=== PATIENT | male | born 1945 | race African-American/Black ===

== ENCOUNTER → 2016-10-21 | Outpatient (CLI) | payer MEDICARE, OTHER ==
[2015-12-30 14:19] VITALS: BP 169/91
[~2016-10-21] MED LIST: AMLO10TA4 PO; ATEN25TA PO; ATOR40TA PO; Aspirin PO; CLOP75TA27 PO; GLIP10TA PO
[2016-10-21 12:26] LABS: BASO % 1 % (0-3); EOS % 4 % (0-3); HEMATOCRIT 40.1 % (39.0-53.0); HEMOGLOBIN 12.6 g/dL (13.0-17.5); LYMPH # 3.6 x10^3/uL (1.0-4.8); LYMPH % 44 % (24-48); MEAN CORPUSCULAR HEMOGLOBIN 28 pg (25-35); MEAN CORPUSCULAR HGB CONC 31 g/dL (31-37); MEAN CORPUSCULAR VOLUME 89 fL (79-100); MONO % 9 % (0-9); NEUT % 42 % (31-73); PLATELET COUNT 148 x10^3/uL (140-400); RED BLOOD COUNT 4.51 x10^6/uL (4.30-5.70); RED CELL DISTRIBUTION WIDTH 14.7 % (11.5-14.5)
[2016-10-21 13:14] LABS: ALBUMIN 3.6 g/dL (3.4-5.0); CALCIUM 8.8 mg/dL (8.5-10.1); CREATININE 3.3 mg/dL (0.7-1.3); GFR 22.3; PHOSPHORUS 4.6 mg/dL (2.6-4.7)
[2016-10-21 13:19] LABS: POTASSIUM 5.9 mmol/L (3.5-5.1)
[2016-10-21 18:12] LABS: PROTEIN 24 HR UR 3651.1 mg/24 hr (30.0-150.0)
[2016-10-21 21:15] LABS: PTH INTACT 74 pg/mL (15-65)
[2016-10-22 08:27] LABS: TOTAL SERUM CREATININE 3.36 mg/dL (0.76-1.27); TOTAL URINE CREATININE 71.6 mg/dL (Not Estab.)
== END | disposition home or self-care (01) ==
LOC: LAB 11:41
PROVIDERS: ATTEND Internal Medicine Nephrology
DX: I12.9 Hypertensive chronic kidney disease with stage 1 through stage 4 chronic kidney disease, or unspecified chronic kidney disease (principal); N18.3 Chronic kidney disease, stage 3 (moderate); E11.22 Type 2 diabetes mellitus with diabetic chronic kidney disease; R80.9 Proteinuria, unspecified; E87.5 Hyperkalemia
CPT/HCPCS: 36415; 80069; 82575; 83970; 84156; 85027

== ENCOUNTER → 2016-10-26 | Outpatient (CLI) | payer MEDICARE, OTHER ==
[2015-12-30 14:19] VITALS: BP 169/91
[2016-10-26 11:41] LABS: ALBUMIN 3.5 g/dL (3.4-5.0); CALCIUM 8.6 mg/dL (8.5-10.1); CREATININE 3.5 mg/dL (0.7-1.3); GFR 20.9; PHOSPHORUS 4.2 mg/dL (2.6-4.7); POTASSIUM 5.6 mmol/L (3.5-5.1)
== END | disposition home or self-care (01) ==
LOC: LAB 11:01
PROVIDERS: ATTEND Internal Medicine Nephrology
DX: I12.9 Hypertensive chronic kidney disease with stage 1 through stage 4 chronic kidney disease, or unspecified chronic kidney disease (principal); N18.3 Chronic kidney disease, stage 3 (moderate); E11.22 Type 2 diabetes mellitus with diabetic chronic kidney disease; R80.9 Proteinuria, unspecified; E87.5 Hyperkalemia
CPT/HCPCS: 36415; 80069

== ENCOUNTER → 2017-04-07 | Outpatient (CLI) | payer MEDICARE, OTHER ==
[2015-12-30 14:19] VITALS: BP 169/91
[~2017-04-07] MED LIST changes: -CLOP75TA27 PO; +CLOP75TA57 PO
--- NOTE | 2017-04-08 15:15 | SLEEP ---
DATE OF STUDY: 04/07/2017 ATTENDING PHYSICIAN: Dr. Bryon Quiñonez The patient is a 72-year-old who weighs 276 pounds with a BMI of 40. The patient's Seneca score was 14. Sleep study was performed at [facility]. This was a split night study. During the night of study, the patient spent 413 minutes in bed and slept for 340 minutes with a sleep efficiency of 82%. Sleep latency was 17 minutes with a REM latency of 119 minutes. Overall sleep architecture showed increased stage 1 sleep, normal stage 2 sleep, normal slow wave and reduced REM sleep. During the initial diagnostic portion of the study, the patient slept for 122 minutes. During this time, there were 3 obstructive apneas, no mixed or central apneas. There were 123 hypopneas. The patient's apnea-hypopnea index was 62 per hour, supine index 62 per hour and REM index of 60 per hour. Review of nocturnal oximetry study revealed a mean oxygen saturation of 97% with the lowest of 65%. A 17% of the time oxygen saturation remained between 80% and 89%. EKG monitoring revealed normal sinus rhythm, average heart rate was 82 beats per minute, no arrhythmias were observed. Periodic limb movements in sleep were seen at an index of 19 per hour and none caused EEG arousals. The patient met the criteria for CPAP initiation. It was started at 5 cm water and titrated up to 15 cm of water. At the final pressure, the patient slept for 47 minutes. The patient had supine sleep throughout, but no REM sleep was observed. Apnea-hypopnea index was reduced to 0 per hour and oxygen saturation remained above 92%. The patient used a medium sized full face mask. IMPRESSION: 1. Severe sleep apnea-hypopnea syndrome at an apnea-hypopnea index of 62 per hour. 2. Nocturnal hypoxia secondary to obstructive sleep apnea, but resolved with CPAP. 3. Mild to moderate periodic limb movements in sleep without any significant EEG arousals. This does not need to be treated. RECOMMENDATIONS: 1. CPAP at 15 cm water completely eliminated the patient's sleep apnea and should be used on a nightly basis. 2. Follow up in 4-6 weeks to assess compliance with CPAP and to document clinical improvement. 3. Weight loss is strongly advised. 4. Avoid central nervous system depressants. 5. Cautioned regarding driving until symptoms of sleep apnea resolve with the use of CPAP. 6. The patient to use a medium sized full face mask. YONI MICHELLE MD DR: KIRSTY/jacobo JOB#: [id number] / [id number] Bryon Doyle
== END | disposition home or self-care (01) ==
LOC: SLPLAB 18:52
PROVIDERS: ATTEND Family Medicine
DX: G47.33 Obstructive sleep apnea (adult) (pediatric) (principal)
CPT/HCPCS: 95810

== ENCOUNTER → 2019-03-06 | Outpatient (CLI) | payer MEDICARE ==
[2018-08-04 14:31] VITALS: BP 132/65
[~2019-03-06] MED LIST changes: +CARV3.1210 PO; +CLON0.2T10 PO; +Calcium Acetate PO; +ERGO500027 PO; +FERR325T14 PO; +HYDR-2868 PO; +ISOS30TA4 PO; +TAMS0.4C97 PO
--- NOTE | 2019-03-06 15:35 | RAD ---
EXAM: Chest, 2 views. HISTORY: Chronic renal disease. COMPARISON: 08/01/2018. FINDINGS: 2 views of the chest are obtained. There is no infiltrate, pleural effusion or pneumothorax. The heart is normal in size. There are calcified renal pelvis. There is eventration of the right hemidiaphragm. IMPRESSION: No acute pulmonary finding. Electronically signed by: Phyllis Morrissey MD (03/06/2019 3:32 PM) [facility]
== END | disposition home or self-care (01) ==
LOC: RAD 13:41
PROVIDERS: ATTEND Nurse Practitioner Adult Health
DX: E11.22 Type 2 diabetes mellitus with diabetic chronic kidney disease (principal); I13.2 Hypertensive heart and chronic kidney disease with heart failure and with stage 5 chronic kidney disease, or end stage renal disease; N18.5 Chronic kidney disease, stage 5; I50.32 Chronic diastolic (congestive) heart failure
CPT/HCPCS: 71046

== ENCOUNTER 2019-03-09 09:18 | Day surgery (SDC) | payer MEDICARE ==
[~2019-03-09] VITALS: Ht 172.7 cm; Wt 122.5 kg
[~2019-03-09 09:18] MED LIST changes: +BUPIVACAINE MPF 0.5% 30 ML VIAL. ONE; +HEPARIN SODIUM 5,000 UNIT in IV NORMAL SALINE 500ML BAG 500 ML IRR ONE; +HYDROmorphone 2 MG/ML VIAL IV PRN; +IV RINGERS,LACTATED 1000ML 1,000 ML IV SCH; +LIDOCAINE 1% PF 2 ML VIAL. ID PRN; +MORPHINE SULFATE 2 MG/ML VIAL. IV PRN; +ONDANSETRON PF 4 MG/2 ML VIAL. IV PRN; +PROCHLORPERAZINE 10 MG/2 ML VIAL. IV PRN; +ceFAZolin SODIUM 3 GM in IV DEXTROSE 5% 100ML 100 ML IV PRN; +fentaNYL PF VIAL 100 MCG/2 ML VIAL IV PRN
[2019-03-09] MEDS ORDERED: IV NORMAL SALINE 1000ML BAG 1,000 ML IV SCH (10:15)
[2019-03-09] MEDS ORDERED: fentaNYL PF VIAL 100 MCG/2 ML VIAL ONE ×2 (10:19→12:43)
[2019-03-09] MEDS ORDERED: ROCURONIUM 50 MG/5 ML VIAL. ONE (10:19)
[2019-03-09] MEDS ORDERED: SUCCINYLCHOLINE 200 MG/10 ML VIAL. ONE (10:25)
[2019-03-09] MEDS ORDERED: PHENYLEPHRINE in 0.9% NACL PF 1 MG/10 ML SYRINGE. IV ONE (10:37)
[2019-03-09] MEDS ORDERED: GLYCOPYRROLATE 1 MG/5 ML VIAL. ONE (10:45)
[2019-03-09] MEDS ORDERED: NEOSTIGMINE METHYLSULFATE 5 MG/5 ML SYRINGE. ONE (10:46)
[2019-03-09] MEDS ORDERED: DEXAMETHASONE SOD PHOS 4 MG/ML VIAL ONE (10:55)
[2019-03-09] MEDS ORDERED: ONDANSETRON PF 4 MG/2 ML VIAL. ONE (10:55)
[2019-03-09] MEDS ORDERED: ePHEDrine PF IN SALINE 50 MG/10 ML SYRINGE. IV ONE (10:56)
[2019-03-09] MEDS ORDERED: SEVOFLURANE 31 TO 60 MINUTES. IH ONE (10:56)
[2019-03-09 11:03] LABS: ALBUMIN 3.4 g/dL (3.4-5.0); CALCIUM 9.1 mg/dL (8.5-10.1); CREATININE 5.8 mg/dL (0.7-1.3); GFR 11.6; POTASSIUM 4.1 mmol/L (3.5-5.1)
[2019-03-09] MEDS ORDERED: SEVOFLURANE 61 TO 120 MINUTES. IH ONE (11:30)
[2019-03-09] MEDS ORDERED: DOCUSATE SODIUM 100 MG CAPSULE. PO PRN (12:15)
[2019-03-09] MEDS ORDERED: oxyCODONE/APAP 5/325 1 TAB TABLET PO PRN (12:15)
--- NOTE | 2019-03-09 12:31 | PDOC ---
BRIEF OPERATIVE NOTE Date: Mar 09, 2019 Pre-Op Diagnosis ESRD Post-Op Diagnosis same with abdominal adhesions, incarcerated supraumbilical hernia Procedure Performed l/s placement PD catheter [facility] primary repair of incarcerated supraumbilical hernia Surgeon Garfield Anesthesia Type: General Blood Loss 10cc IV Fluid 250cc Urine Output 125cc Specimens Obtained hernia sack and incarcerated contents Findings LUQ omental adhesions, incarcerated omentum and preperitoneal fat in the supraumbilical hernia Complications none Operative Note Wk # [id number] LIGIA WILLS MD Mar 09, 2019 12:31
--- NOTE | 2019-03-09 12:34 | DISCH ---
DISCHARGE INSTRUCTIONS Condition on Discharge Condition on Discharge: Stable Activity After Discharge Activity Instructions for Disc: Resume previous activity, Activity as tolerated Lifting Instructions after Dis: No heavy lifting Exercise Instruction after Dis: Progress as tolerated Driving Instructions after Dis: Do not drive today Weight Bearing Status after Di: As tolerated Diet after Discharge Diet after Discharge: Cardiac, Renal Dialysis, Diabetic No Calorie Level Wound Incision Care Wound/Incision Care: Ice to area for comfort, Keep wound/cast CDI Checks after Discharge Checks after discharge: Check blood press - daily, Check blood sugar, ac/hs Contacting the DR. after DC Call your doctor for: Concerns you may have Follow-Up Follow up with: Garfield two weeks Treatment/Equipment after DC Adaptive Equipment Issued: None LIGIA WILLS MD Mar 09, 2019 12:34
[2019-03-09] MEDS ORDERED: OXYC1TAB15 PO (12:44)
[2019-03-09] MEDS ORDERED: DOCU-150 PO (12:45)
[2019-03-09] MEDS ORDERED: oxyCODONE/APAP 5/325 1 TAB TABLET PO ONE (13:00)
[2019-03-09 13:29] VITALS: BP 121/58
--- NOTE | 2019-03-09 15:49 | OP ---
DATE OF SURGERY: 03/09/2019 PREOPERATIVE DIAGNOSIS: End-stage renal disease. POSTOPERATIVE DIAGNOSES: End-stage renal disease with abdominal adhesions and incarcerated supraumbilical hernia. PROCEDURES: 1. Laparoscopic placement of peritoneal dialysis catheter. 2. Lysis of adhesions. 3. Primary repair of incarcerated supraumbilical hernia. SURGEON: Morgan Wills MD ANESTHESIA: General endotracheal. ESTIMATED BLOOD LOSS: 10 mL. INTRAVENOUS FLUID: 250. URINE OUTPUT: 125. DESCRIPTION OF PROCEDURE: The patient was brought to the operating suite, given a general endotracheal anesthetic, Torres catheter was placed to dependent drainage, and abdomen was prepped and draped in usual sterile fashion. A supraumbilical incision was infiltrated with local, incised, and a 5-mm Visiport was used to safely gain access into the abdominal cavity taking care to avoid injury to abdominal contents. Pneumoperitoneum was established. Camera was inserted and this revealed omental adhesions in the mid and left upper quadrant. In light of this, a right upper and right lower quadrant port were placed under direct vision to allow careful takedown of the adhesions with an endoscopic LigaSure taking care to assure no injury from the initial port placement or from the dissection. This revealed an incarcerated supraumbilical hernia as well. When adequate mobilization of the abdominal wall had been done to expose the insertion site, local anesthetic was infiltrated, incision was made, and under direct vision, the Cook needle was passed into the abdominal cavity. The needle was removed. A dilator was passed. Catheter was placed into the true pelvis. The Dacron cuff was seated just above the peritoneum. Sheath was removed. Remaining catheter was tunneled through the exit site. Abdomen was decompressed. Supraumbilical incision was made and dissection was carried down to the hernia. The sac was opened, contents were excised with LigaSure, and the small defect was closed in 2 layers, first with 0 Vicryl in running fashion and secondly with a running 0 PDS tied in the middle. Pneumoperitoneum was reestablished. Inspection showed no active bleeding or remaining adhesions. Abdomen was decompressed. Catheter was flushed with 500 mL of normal saline, which readily accepted and drained a similar amount. Incisions were closed with 3-0 Vicryl for the subcutaneous tissue, 4-0 Monocryl with Steri-Strips for the skin. The catheter was "packed" with 60 mL of heparinized saline. Sterile dressings were applied. Torres catheter was removed. The patient was awakened from his anesthetic and taken to the recovery room in satisfactory condition. MORGAN WILLS MD DR: DAVID/jacobo JOB#: [id number] / [id number] ELEAZAR Ro MD
--- NOTE | 2019-03-13 14:07 | PATHOLOGY ---
[facility] Accession Number: [id number] . 01 Material submitted: . hernia - INCARCERATED HERNIA CONTENTS AND HERNIA SAC . 01 Clinical history: . Preop DX: Renal failure Postop DX: Same and supraumbilical hernia . 02 Diagnosis: Segment of focal mesothelial-lined fibromembranous and fibroadipose tissue, supraumbilical hernia repair: - Hernia sac, with congestion and focal recent hemorrhage of adipose tissues. (JPM:[facility] 03/13/2019) QTP/03/13/2019 . 02 Electronically signed: . Meliton Bland MD, Pathologist NPI- [id number] . 01 Gross description: . The specimen is received in formalin labeled "Alfonso Carson Jr, incarcerated hernia contents and hernia sac". The post-operative diagnosis is listed on the requisition as "supraumbilical hernia". Received is a segment of yellow-brown, lobulated adipose tissue measuring 7.4 x 4.4 x 2.4 cm in greatest dimensions, as well as a segment of dusky aldana-bertrand fibromembranous tissue admixed with yellow-brown, lobulated adipose tissue measuring 4.0 x 3.3 x 2.2 cm in greatest dimensions. Serial sectioning through the larger segment reveals yellow-brown cut surfaces, and serial sectioning through the smaller segment reveals yellow-brown to dusky wilkins-bertrand cut surfaces. No lesions or nodules are noted grossly. Both segments are submitted representatively in cassette A1. ([facility]; 03/10/2019) XDC/XDC . 02 Pathologist provided ICD-10: K43.9 . 02 CPT . 132576 Specimen Comment: A courtesy copy of this report has been sent to Specimen Comment: [phone], . Specimen Comment: Report sent to / DR OLIVA Performed at: [address] [facility] [address], [place], [place] [id number] MD Azar Pham MD Phone: [phone] Performed at: 02 [facility] [address] [place], [place] [id number] MD Meliton Bland MD Phone: [phone]
== END 2019-03-09 14:50 | disposition home or self-care (01) ==
LOC: SURG 09:18
PROVIDERS: ATTEND Surgery
DX: E11.22 Type 2 diabetes mellitus with diabetic chronic kidney disease (principal); K42.0 Umbilical hernia with obstruction, without gangrene; K66.0 Peritoneal adhesions (postprocedural) (postinfection); I12.9 Hypertensive chronic kidney disease with stage 1 through stage 4 chronic kidney disease, or unspecified chronic kidney disease; N18.9 Chronic kidney disease, unspecified; I25.2 Old myocardial infarction; I25.10 Atherosclerotic heart disease of native coronary artery without angina pectoris; Z96.651 Presence of right artificial knee joint; Z98.890 Other specified postprocedural states; Z79.84 Long term (current) use of oral hypoglycemic drugs
CPT/HCPCS: 36415; 49324; 49587; 80048; 82040; A7015; J0171; J0330; J1100; J1644; J2405; J2710; J3010; J3490; J7030; J7040; 88302; J2370

== ENCOUNTER 2019-06-23 13:15 | Emergency (ER) | payer MEDICARE ==
[~2019-06-23] VITALS: Ht 177.8 cm; Wt 110.2 kg
[~2019-06-23 13:15] MED LIST changes: -BUPIVACAINE MPF 0.5% 30 ML VIAL. ONE; +DOCU-150 PO; -HEPARIN SODIUM 5,000 UNIT in IV NORMAL SALINE 500ML BAG 500 ML IRR ONE; -HYDROmorphone 2 MG/ML VIAL IV PRN; -IV RINGERS,LACTATED 1000ML 1,000 ML IV SCH; -LIDOCAINE 1% PF 2 ML VIAL. ID PRN; -MORPHINE SULFATE 2 MG/ML VIAL. IV PRN; -ONDANSETRON PF 4 MG/2 ML VIAL. IV PRN; +OXYC1TAB15 PO; -PROCHLORPERAZINE 10 MG/2 ML VIAL. IV PRN; -ceFAZolin SODIUM 3 GM in IV DEXTROSE 5% 100ML 100 ML IV PRN; -fentaNYL PF VIAL 100 MCG/2 ML VIAL IV PRN
[2019-06-23 13:49] VITALS: BP 107/54
[2019-06-23] MEDS ORDERED: fentaNYL PF VIAL 100 MCG/2 ML VIAL IM STA (13:54)
--- NOTE | 2019-06-23 14:00 | PHYS DOC ---
Past Medical History Past Medical History: Diabetes-Type II, Hypertension, DE, Renal Disease, Other Additional Past Medical Histor: "Maybe kidney problems,"per son. Past Surgical History: Knee Replacement, Other Additional Past Surgical Histo: carp tunnel left, lipoma left ear Alcohol Use: Rarely Drug Use: None Adult General Chief Complaint Chief Complaint: FOOT INJURY PAIN [facility] HPI Patient is a 74 year old male who presents with left foot and ankle pain has been ongoing for week. The patient states he had a groin injury and he turned wrong ever since in his ankle and foot has been painful and swollen. Reports pain is 10 out of 10 when he tries to walk on it. Review of Systems Review of Systems Constitutional: Denies fever or chills [] Eyes: Denies change in visual acuity, redness, or eye pain [] HENT: Denies nasal congestion or sore throat [] Respiratory: Denies cough or shortness of breath [] Cardiovascular: No additional information not addressed in HPI [] GI: Denies abdominal pain, nausea, vomiting, bloody stools or diarrhea [] : Denies dysuria or hematuria [] Musculoskeletal: Reports L foot pain. Integument: Denies rash or skin lesions [] Neurologic: Denies headache, focal weakness or sensory changes [] Endocrine: Denies polyuria or polydipsia [] Complete systems were reviewed and found to be within normal limits, except as documented in this note. Current Medications Current Medications Current Medications Medications (Trade) Dose Ordered Sig/Angélica Start Time Stop Time Status Last Admin Dose Admin Fentanyl Citrate (Fentanyl 2ml Vial) 50 mcg 1X STAT 06/23/19 13:54 06/23/19 13:58 DC 06/23/19 13:54 50 MCG Allergies Allergies Allergies Coded Allergies Type Severity Reaction Last Updated Verified No Known Drug Allergies 03/09/19 No Physical Exam Physical Exam Constitutional: Well developed, well nourished, no acute distress, non-toxic a ppearance. [] HENT: Normocephalic, atraumatic, bilateral external ears normal, oropharynx moist, no oral exudates, nose normal. [] Eyes: PERRLA, EOMI, conjunctiva normal, no discharge. [] Neck: Normal range of motion, no tenderness, supple, no stridor. [] Skin: Warm, dry, no erythema, no rash. [] Back: No tenderness, no CVA tenderness. [] Extremities: L foot tenderness lateral side, left medial ankle tenderness and lower tib/fib tenderness. Diffuse swelling. 2+/4 pedal pulses bilateral. Neurologic: Alert and oriented X 3, normal motor function, normal sensory function, no focal deficits noted. [] Psychologic: Affect normal, judgement normal, mood normal. [] Current Patient Data Vital Signs Vital Signs Date Time Temp Pulse Resp B/P (MAP) Pulse Ox O2 Delivery O2 Flow Rate FiO2 06/23/19 14:25 17 96 Room Air 06/23/19 13:49 97.8 84 107/54 (71) 97.8 EKG EKG [] Radiology/Procedures Radiology/Procedures [][address] [place] [address] IMAGING REPORT Signed PATIENT: CHINA JOHN ACCOUNT: [id number] : 1945 LOCATION: ER AGE: 74 SEX: M EXAM STATUS: REG ER ORD. PHYSICIAN: KAYLYN PRINCE APRN REASON: left lower leg pain and edema; x-ray infection vs fracture PROCEDURE: CT LOWER EXTREMITY WO LEFT EXAM: CT left foot and ankle without contrast. HISTORY: Left lower leg, foot and ankle pain and swelling. TECHNIQUE: CT of the left ankle and foot was performed without intravenous contrast. One or more of the following individualized dose reduction techniques were utilized for this examination: 1. Automated exposure control. 2. Adjustment of the mA and/or kV according to patient size. 3. Use of iterative reconstruction technique. COMPARISON: 06/23/2019 by radiographs. FINDINGS: No displaced fractures are appreciated throughout the foot and ankle. Ossicles at the tips of the medial and lateral malleolus are consistent with chronic avulsion injuries. No acute avulsion is identified. Small osteophytes indicate mild tibiotalar osteoarthritis. There is soft tissue swelling medially and laterally about the ankle, worse posteriorly than anteriorly. There are soft tissue calcifications throughout the distal hall consistent with phleboliths, or possibly reflecting chronic venous stasis. The intrinsic musculature of the foot is moderately fatty atrophied. There is also fatty atrophy throughout the visualized muscles of the distal leg. There is moderate to severe first metatarsophalangeal osteoarthritis. There is some fragmentation along the articular surfaces which may reflect osteoarthritis or superimposed inflammatory arthritis. There is mild to moderate osteoarthritis at the tarsometatarsal joints. Soft tissue swelling is also noted along the dorsum of the foot worst laterally. There are small plantar and posterior calcaneal spurs. IMPRESSION: 1. No fracture. 2. Changes about the first metatarsophalangeal joint most likely reflect moderate to severe osteoarthritis. Correlate clinically to exclude superimposed infection. 3. 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 4. Soft tissue swelling. Correlate for cellulitis or a systemic/regional edematous process. 5. Fatty atrophy of the musculature of the distal leg and foot. These findings were called to Dr. Prince by Jasson Loyd on 06/23/2019 at 5:04 PM. Electronically signed by: David Loyd MD (06/23/2019 5:04 PM) [facility] DICTATED and SIGNED BY: CHINA LOYD MD DATE: 06/23/19 4715 Course & Med Decision Making Course & Med Decision Making Pertinent Labs and Imaging studies reviewed. (See chart for details) Will get imaging and give IM Fentanyl. Initial imaging is infection vs fracture. Ordered CT to determine which. Foot does not appear infected. No ulcer, erythema or warmth. CT does not show infection or fracture does show swelling which is apparent on initial exam. Will put patient in ortho boot and have follow up with PCP. Will also give pain medication. Will have ice and elevate at home. Dragon Disclaimer Dragon Disclaimer This electronic medical record was generated, in whole or in part, using a voice recognition dictation system. Departure Departure Impression: Primary Impression: Left foot pain Disposition: 01 HOME, SELF-CARE Condition: STABLE Referrals: Juana OLIVA MD (PCP) Patient Instructions: RICE - Routine Care for Injuries Additional Instructions: Thank you for visiting [facility]. We appreciate you trusting us with your care. If any additional problems come up don't hesitate to return to visit us. Please follow up with your primary care provider so they can plan additional care if needed and know about the problem that you had. If symptoms worsen come back to the Emergency Department. Any concerning symptoms that start such as chest pain, shortness of air, weakness or numbness on one side of the body, running high fevers or any other concerning symptoms return to the ER. Please follow up with your doctor for further workup. Scripts Hydrocodone/Apap 5-325 (NORCO 5-325 TABLET) 1 Each Tablet 0.5 TAB PO PRN Q6HRS PRN for PAIN for 3 Days, #12 TAB 0 Refills Prov: KAYLYN PRINCE APRN 06/23/19 KAYLYN PRINCE APRN Jun 23, 2019 14:00
--- NOTE | 2019-06-23 14:58 | RAD ---
TIBIA FIBULA LEFT, FOOT LEFT 3V, ANKLE LEFT 3V 06/23/2019 1:54 PM INDICATION: Tenderness, edema in the foot and ankle. Hurts to walk. COMPARISON: None available. TECHNIQUE: 3 views of the left foot, 3 views the left ankle and 2 views of the left tibia and fibula are provided. FINDINGS/ IMPRESSION: 1. There is moderate joint space narrowing and endplate irregularity involving the first metatarsophalangeal joint. There is marginal osteophytosis with possible fracture of an osteophyte along the dorsal margin. Alternatively, findings could reflect underlying joint infection. Mild degenerative changes of the interphalangeal joint of the first digit noted. Dorsal soft tissue swelling is noted. 2. Vascular opacifications are present. Small plantar tiny amount is apparent. 3. Tibial plafond and talar dome are intact. Ankle mortise is congruent. Mild soft tissue swelling along the ankle. Vascular calcifications are present. 4. Tibia and fibula are intact. No acute fracture or dislocation. Visualized knee appears intact with mild medial femorotibial joint space narrowing with marginal osteophytosis compatible with mild osteoarthrosis. Electronically signed by: Syeda Lopez MD (06/23/2019 2:55 PM) [facility]
--- NOTE | 2019-06-23 17:07 | RAD ---
EXAM: CT left foot and ankle without contrast. HISTORY: Left lower leg, foot and ankle pain and swelling. TECHNIQUE: CT of the left ankle and foot was performed without intravenous contrast. One or more of the following individualized dose reduction techniques were utilized for this examination: 1. Automated exposure control. 2. Adjustment of the mA and/or kV according to patient size. 3. Use of iterative reconstruction technique. COMPARISON: 06/23/2019 by radiographs. FINDINGS: No displaced fractures are appreciated throughout the foot and ankle. Ossicles at the tips of the medial and lateral malleolus are consistent with chronic avulsion injuries. No acute avulsion is identified. Small osteophytes indicate mild tibiotalar osteoarthritis. There is soft tissue swelling medially and laterally about the ankle, worse posteriorly than anteriorly. There are soft tissue calcifications throughout the distal hall consistent with phleboliths, or possibly reflecting chronic venous stasis. The intrinsic musculature of the foot is moderately fatty atrophied. There is also fatty atrophy throughout the visualized muscles of the distal leg. There is moderate to severe first metatarsophalangeal osteoarthritis. There is some fragmentation along the articular surfaces which may reflect osteoarthritis or superimposed inflammatory arthritis. There is mild to moderate osteoarthritis at the tarsometatarsal joints. Soft tissue swelling is also noted along the dorsum of the foot worst laterally. There are small plantar and posterior calcaneal spurs. IMPRESSION: 1. No fracture. 2. Changes about the first metatarsophalangeal joint most likely reflect moderate to severe osteoarthritis. Correlate clinically to exclude superimposed infection. 3. 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 4. Soft tissue swelling. Correlate for cellulitis or a systemic/regional edematous process. 5. Fatty atrophy of the musculature of the distal leg and foot. These findings were called to Dr. Child by Jasson Loyd on 06/23/2019 at 5:04 PM. Electronically signed by: David Loyd MD (06/23/2019 5:04 PM) [facility]
[2019-06-23] MEDS ORDERED: HYDR-3164 PO (17:11)
== END 2019-06-23 17:20 | disposition home or self-care (01) ==
LOC: ER 13:15
DX: M79.672 Pain in left foot (principal); M25.572 Pain in left ankle and joints of left foot; G89.11 Acute pain due to trauma; E11.9 Type 2 diabetes mellitus without complications; I10 Essential (primary) hypertension; I25.2 Old myocardial infarction; M77.32 Calcaneal spur, left foot; X58.XXXA Exposure to other specified factors, initial encounter; Y93.89 Activity, other specified; Y92.89 Other specified places as the place of occurrence of the external cause; Y99.8 Other external cause status
CPT/HCPCS: 73590; 73610; 73630; 73700; 96372; 99284; J3010

== ENCOUNTER → 2019-07-14 | Outpatient (CLI) | payer MEDICARE ==
[2019-06-23 13:49] VITALS: BP 107/54
[~2019-07-14] MED LIST changes: +HYDR-3164 PO
--- NOTE | 2019-07-14 16:07 | CARD ---
MR#: [id number] Date of Study: 07/14/2019 Ordering Physician: GOPI BARCENAS, Referring Physician: GOPI BARCENAS, Tech: Tamara Abrams [facility] APPROVED REPORT EXAM: Two-dimensional and M-mode echocardiogram with Doppler and color Doppler. Other Information Quality : Good INDICATION Aortic Valve Disease 2D DIMENSIONS Left Atrium(2D)3.1 (1.6-4.0cm)IVSd0.9 (0.7-1.1cm) Aortic Root(2D)3.1 (2.0-3.7cm)LVDd4.7 (3.9-5.9cm) LVOT Diameter2.0 (1.8-2.4cm)PWd1.0 (0.7-1.1cm) LVDs3.0 (2.5-4.0cm)FS (%) 35.5 % SV66.8 mlLVEF(%)60.0 (>50%) Aortic Valve AoV Peak Baron.258.0cm/sAoV VTI57.1cm AO Peak GR.26.6mmHgLVOT Peak Baron.139.2cm/s AO Mean GR.17mmHgAVA (VMAX)1.73cm2 MARCEL (VTI)1.60cm2 Mitral Valve MV E Pknemtfd91.6cm/sMV DECEL SIWY524mx MV A Fjxrmmhx507.0cm/sE/A Ratio0.8 Pulmonary Vein S1 Aecbqkud57.7cm/sD2 Zxzngdux01.8cm/s LEFT VENTRICLE The left ventricle is normal size. There is mild concentric left ventricular hypertrophy. The left ve ntricular systolic function is normal and the ejection fraction is within normal range. The Ejection Fraction is 55-60%. There is normal LV segmental wall motion. Transmitral Doppler flow pattern is Gra de I-abnormal relaxation pattern. RIGHT VENTRICLE The right ventricle is normal size. The right ventricular systolic function is normal. ATRIA The left atrium size is normal. The right atrium size is normal. The interatrial septum is intact wit h no evidence for an atrial septal defect or patent foramen ovale as noted on 2-D or Doppler imaging. AORTIC VALVE The aortic valve is calcified and displays decreased opening. Doppler and Color Flow revealed no sign ificant aortic regurgitation. Calculated aortic valve area is 1.6 cm2 with maximum pressure gradient of 27 mmHg and mean pressure gradient of 17 mmHg. Doppler and color-flow analysis revealed mild aorti c stenosis. MITRAL VALVE The mitral valve is calcified but opens well. There is no evidence of mitral valve prolapse. There is no mitral valve stenosis. Doppler and Color-flow revealed trace mitral regurgitation. TRICUSPID VALVE The tricuspid valve is normal in structure and function. Doppler and Color Flow revealed no tricuspid valve regurgitation noted. There is no tricuspid valve stenosis. PULMONIC VALVE The pulmonic valve is not well visualized. Doppler and Color Flow revealed no pulmonic valvular regur gitation. There is no pulmonic valvular stenosis. GREAT VESSELS The aortic root is normal in size. The ascending aorta is not well seen. The IVC is normal in size an d collapses >50% with inspiration. PERICARDIAL EFFUSION There is no evidence of significant pericardial effusion. Critical Notification Critical Value: No <Conclusion> The left ventricle is normal size. The left ventricular systolic function is normal and the ejection fraction is within normal range. The Ejection Fraction is 55-60%. There is mild concentric left ventricular hypertrophy. The aortic valve is calcified and displays decreased opening. Calculated aortic valve area is 1.6 cm2 with maximum pressure gradient of 27 mmHg and mean pressure g radient of 17 mmHg. Doppler and color-flow analysis revealed mild aortic stenosis. Doppler and Color Flow revealed no significant aortic regurgitation. Doppler and Color-flow revealed trace mitral regurgitation. Doppler and Color Flow revealed no tricuspid valve regurgitation noted. Signed by : Harvinder Trevino MD Electronically Approved : 07/14/2019 16:06:55
== END ==
LOC: ECHO 14:04
PROVIDERS: ATTEND Internal Medicine Cardiovascular Disease
DX: I08.0 Rheumatic disorders of both mitral and aortic valves (principal); I11.9 Hypertensive heart disease without heart failure; E11.9 Type 2 diabetes mellitus without complications
CPT/HCPCS: 93306

== ENCOUNTER 2020-05-07 08:42 | Outpatient (CLI) | payer MEDICARE ==
[~2020-05-07] VITALS: Ht 177.8 cm; Wt 104.3 kg
[~2020-05-07 08:42] MED LIST changes: +DOCU-109 PO
[2020-05-07 09:04] VITALS: BP 139/83
[2020-05-07] MEDS ORDERED: IOHEXOL 240 MG/ML 50ML VIAL. ONE (09:20)
[2020-05-07] MEDS ORDERED: IOHEXOL 240 MG/ML 50ML VIAL. IJ ONE (09:30)
[2020-05-07] MEDS ORDERED: ONDANSETRON ODT 4 MG TAB.RAPDIS. PO PRN (10:30)
--- NOTE | 2020-05-07 10:45 | NUR ---
Discharge Note: RAJESH JOHN Discharge instructions and discharge home medications reviewed with Patient and a copy given. All questions have been answered and understanding verbalized. The following instructions and handouts were given: peritoneal dialysis catheter Discontinued lines and drains: nothing to discontinue. Patient discharged to Home or Self Care withSpousevia Wheelchair. Notified Dr. Berrios that patient became nauseated and vomited, orders received. Patient given oral zofran rapid release 4mg for nausea/vomiting. Patient stated that the medication helped and he was ready to go home. was notified and patient wheeled out to their personal vehicle. Surgeon's office will notify patient of plan of care.
--- NOTE | 2020-05-10 11:06 | RAD ---
Fluoroscopic and CT evaluation of peritoneal dialysis catheter May 07, 2020 Indication: Nonfunctional catheter COMPARISON STUDY: None Discussion: Fluoroscopic evaluation of a peritoneal dialysis catheter was performed. Catheter is in the left pelvis, somewhat abnormally positioned on fluoroscopy. Contrast was administered through the catheter which appears to be loculated and extends into the left lower quadrant. The morphology of the loculation was a bit irregular. Distal catheter was occluded. The catheter could not be cleared with a guidewire or catheter manipulation. Patient was therefore transferred to CT imaging was performed to evaluate the loculated collection in the left lower quadrant. No gross extension of contrast into the bowel is identified. The collection appears loculated in the left peritoneal/paracolic gutter. Total fluoroscopy time: 1 MINUTES Dose area product: 22 Gycm2 IMPRESSION: Obstructed distal peritoneal dialysis catheter, which is unable to be cleared under fluoroscopic evaluation. Loculated appearing collection the left abdomen may reflect peritoneal adhesions.
== END 2020-05-07 10:50 ==
LOC: INTRAD 08:42
PROVIDERS: ATTEND Internal Medicine Nephrology
DX: T85.611A Breakdown (mechanical) of intraperitoneal dialysis catheter, initial encounter (principal); Y65.8 Other specified misadventures during surgical and medical care; Y92.89 Other specified places as the place of occurrence of the external cause; T86.290 Cardiac allograft vasculopathy; I12.0 Hypertensive chronic kidney disease with stage 5 chronic kidney disease or end stage renal disease; N18.6 End stage renal disease; E11.22 Type 2 diabetes mellitus with diabetic chronic kidney disease; E03.9 Hypothyroidism, unspecified; E78.5 Hyperlipidemia, unspecified; Z79.84 Long term (current) use of oral hypoglycemic drugs; Z79.899 Other long term (current) drug therapy
CPT/HCPCS: 49400; 74190; C1769

== ENCOUNTER 2020-05-20 06:13 | Day surgery (SDC) | payer MEDICARE ==
[~2020-05-20] VITALS: Ht 172.7 cm; Wt 105.5 kg
[~2020-05-20 06:13] MED LIST changes: +ASPI-630 PO; +HEPARIN SODIUM 1,000 UNIT in IV NORMAL SALINE 100ML 100 ML IRR ONE
[2020-05-20] MEDS ORDERED: PROCHLORPERAZINE 10 MG/2 ML VIAL. IV PRN (07:00)
[2020-05-20] MEDS ORDERED: INSULIN LISPRO 100 UNIT/ML 3ML VIAL for OP,RR ONLY. SQ PRN (07:00)
[2020-05-20] MEDS ORDERED: ONDANSETRON PF 4 MG/2 ML VIAL. IV PRN (07:00)
[2020-05-20] MEDS ORDERED: IV RINGERS,LACTATED 1000ML 1,000 ML IV SCH (07:00)
[2020-05-20] MEDS ORDERED: MORPHINE SULFATE 2 MG/ML VIAL. IV PRN (07:00)
[2020-05-20] MEDS ORDERED: HYDROmorphone 2 MG/ML VIAL IV PRN (07:00)
[2020-05-20] MEDS ORDERED: LIDOCAINE 1% PF 2 ML VIAL. ID PRN (07:00)
[2020-05-20] MEDS ORDERED: fentaNYL PF VIAL 100 MCG/2 ML VIAL IV PRN ×2 (07:00)
[2020-05-20] MEDS ORDERED: HEPARIN PF 500 UNIT/5 ML DISP.SYRIN. IVP ONE (07:05)
[2020-05-20] MEDS ORDERED: IV NORMAL SALINE 1000ML BAG 1,000 ML IV ONE (07:15)
[2020-05-20 07:27] LABS: CALCIUM 8.4 mg/dL (8.5-10.1); CREATININE 5.9 mg/dL (0.7-1.3); GFR 11.3; POTASSIUM 4.8 mmol/L (3.5-5.1)
[2020-05-20] MEDS ORDERED: fentaNYL PF VIAL 100 MCG/2 ML VIAL ONE (07:35)
[2020-05-20] MEDS ORDERED: ROCURONIUM 50 MG/5 ML VIAL. ONE (07:36)
[2020-05-20] MEDS ORDERED: PROPOFOL 10 MG/ML (20ML) VIAL. IV ONE (07:37)
[2020-05-20] MEDS ORDERED: LIDOCAINE 2% PF 5 ML VIAL. ONE (07:37)
[2020-05-20] MEDS ORDERED: ONDANSETRON PF 4 MG/2 ML VIAL. ONE (07:37)
[2020-05-20] MEDS ORDERED: DEXAMETHASONE SOD PHOS 4 MG/ML VIAL ONE (07:37)
[2020-05-20] MEDS ORDERED: ePHEDrine PF IN SALINE 50 MG/10 ML SYRINGE. IV ONE (08:44)
[2020-05-20] MEDS ORDERED: PHENYLEPHRINE in 0.9% NACL PF 1 MG/10 ML SYRINGE. IV ONE (08:44)
[2020-05-20] MEDS ORDERED: GLYCOPYRROLATE 1 MG/5 ML VIAL. ONE (09:06)
[2020-05-20] MEDS ORDERED: NEOSTIGMINE METHYLSULFATE 5 MG/5 ML SYRINGE. ONE (09:06)
--- NOTE | 2020-05-20 09:36 | PDOC4 ---
Operative Note Operative Note Operative Note: Preoperative Diagnosis: Malfunctioning peritoneal dialysis catheter Postoperative Diagnosis: Same Procedure: Exploratory laparoscopy, removal of peritoneal dialysis catheter Surgeon: Agapito Diesel Engine Operator: Demetrius MONTEZ Anesthesia: General EBL: 10 mL Specimen: Catheter to pathology Drains: None Complications: None Indication: The patient is a 75-year-old male who had been utilizing peritoneal dialysis. He recently required surgery for incarcerated ventral hernia. He has recovered well from this however subsequent to the surgery the PD catheter is no longer functional. The plan is to proceed with laparoscopic evaluation and possible revision or replacement of the catheter. The risks of surgery were discussed which include bleeding, infection, visceral injury, pain, anesthetic risk, potential need for additional surgery or procedure. He understands and would like to proceed. Description: The patient was taken the operating him and placed supine in the operating table. General anesthesia was performed. The abdomen is prepped with Betadine draped in a standard surgical manner. A small left upper quadrant incision was made through to visualize 5 mm trocar was inserted. A pneumoperitoneum was created and the laparoscope was introduced. Initial inspection showed extensive abdominal wall adhesions which obscured complete abdominal visualization. In the region of the left upper quadrant were able to see the stomach and liver both of which were adhesed to the abdominal wall. Looking inferiorly, visualization was minimal and limited due to severe adhesions. Efforts were made to find a free area away from adhesions however none were present. It appeared that peritoneal dialysis would no longer be feasible due to the extensive intra-abdominal adhesions. Intraoperative pictures were taken for documentation. We elected to remove the catheter. The laparoscopic port was removed. An incision was made close to the distal cuff. Cautery dissection was carried down to the distal cuff. The cuff was freed from the surrounding muscle and fascial tissues, and the coiled portion of the catheter was readily retrieved. The proximal cuff was similarly mobilized from the subcutaneous tissues. The catheter was then completely removed and sent to pathology. The fascial defect was approximated with an 0 Vicryl suture. Hemostasis was achieved with cautery. The skin of both incisions was closed with 4 Monocryl. Steri-Strips and dressings were applied. The patient tolerated the procedure well and was sent to the recovery room in stable condition. At the end of the case all counts were correct. JOLEEN NAVARRO MD May 20, 2020 09:36
--- NOTE | 2020-05-20 09:40 | DISCH ---
DISCHARGE INSTRUCTIONS Condition on Discharge Condition on Discharge: Stable Activity After Discharge Activity Instructions for Disc: Other, see below (no lifting over 20 lbs X 2 weeks) Diet after Discharge Diet after Discharge: Regular Wound Incision Care Wound/Incision Care: Other, see below (may remove bandaids tomorrow and shower) Follow-Up Follow up with: Dr Navarro in 2 weeks in office, call for appt [phone] JOLEEN NAVARRO MD May 20, 2020 09:39
[2020-05-20] MEDS ORDERED: HYDR-3164 PO (09:47)
[2020-05-20 10:17] VITALS: BP 123/61
--- NOTE | 2020-05-21 16:08 | PATHOLOGY ---
[facility] Accession Number: [id number] . 01 Material submitted: . body - PD CATH . 01 Clinical history: . RENAL FAILURE . 02 Diagnosis: PD catheter (Gross only) (JPM:pit 05/21/2020) QTP 05/21/2020 1508 Local . 02 Electronically signed: . Meliton Bland MD, Pathologist NPI- [id number] . 01 Gross description: . The specimen is received in formalin, labeled "Alfonso Carson , PD cath". Received is a segment of clear tubing, consistent with catheter, measuring 40.4 cm in length by 0.5 cm in diameter. A gross photograph is taken. Sections are not submitted. (CAA; 05/20/2020) QA/[facility] 05/20/2020 1853 Local . 02 Pathologist provided ICD-10: N18.9 . 02 CPT . 221162 Specimen Comment: A courtesy copy of this report has been sent to [phone], [phone] Specimen Comment: [id number] Specimen Comment: Report sent to / DR OLIVA Performed at: 01 [facility] [address] [facility] [address] [facility] [address], [place] [id number] MD Azar Pham MD Phone: [phone] Performed at: 02 [facility] [address] [place], [place] [id number] MD Meliton Bland MD Phone: [phone]
== END 2020-05-20 11:17 | disposition home or self-care (01) ==
LOC: SURG 06:13
PROVIDERS: ATTEND Surgery
DX: T85.611A Breakdown (mechanical) of intraperitoneal dialysis catheter, initial encounter (principal); I25.10 Atherosclerotic heart disease of native coronary artery without angina pectoris; I12.0 Hypertensive chronic kidney disease with stage 5 chronic kidney disease or end stage renal disease; N18.6 End stage renal disease; E11.22 Type 2 diabetes mellitus with diabetic chronic kidney disease; E78.5 Hyperlipidemia, unspecified; E03.9 Hypothyroidism, unspecified; Z20.828 Contact with and (suspected) exposure to other viral communicable diseases; Y65.8 Other specified misadventures during surgical and medical care; Y92.89 Other specified places as the place of occurrence of the external cause; Z79.84 Long term (current) use of oral hypoglycemic drugs; Z79.82 Long term (current) use of aspirin; Z79.899 Other long term (current) drug therapy
CPT/HCPCS: 49422; 80048; 82962; 87426; 88300; A7015; C9803; J0690; J1100; J1644; J2370; J2405; J2704; J2710; J3010; J3490; U0003; J1642

== ENCOUNTER 2021-02-25 10:38 | Outpatient (CLI) | payer MEDICARE ==
[~2021-02-25] VITALS: Ht 177.8 cm; Wt 108.0 kg
[~2021-02-25 10:38] MED LIST changes: -DOCU-150 PO; +DOCU-158 PO; +ERGO500089 PO; -HEPARIN SODIUM 1,000 UNIT in IV NORMAL SALINE 100ML 100 ML IRR ONE; -ISOS30TA4 PO; +ISOS30TA68 PO
[2021-02-25] MEDS ORDERED: LIDOCAINE WITH 8.4% SOD BICARB 3 ML DISP.SYRIN. ONE (11:44)
[2021-02-25] MEDS ORDERED: IODIXANOL 320 MG/ML 100 ML VIAL. ONE (11:44)
[2021-02-25] MEDS ORDERED: MIDO5TAB4 PO (11:48)
[2021-02-25] MEDS ORDERED: DOCU-109 PO (11:48)
[2021-02-25] MEDS ORDERED: METO5TAB4 PO (11:48)
[2021-02-25] MEDS ORDERED: SEVE800T8 PO (11:49)
[2021-02-25] MEDS ORDERED: TORS20TA2 PO (11:49)
[2021-02-25 12:20] LABS: BASO % 1 % (0-3); EOS # 0.2 x10^3/uL (0.0-0.7); EOS % 4 % (0-3); HEMATOCRIT 33.8 % (39.0-53.0); HEMOGLOBIN 11.3 g/dL (13.0-17.5); LYMPH # 2.2 x10^3/uL (1.0-4.8); LYMPH % 46 % (24-48); MEAN CORPUSCULAR HEMOGLOBIN 32 pg (25-35); MEAN CORPUSCULAR HGB CONC 34 g/dL (31-37); MEAN CORPUSCULAR VOLUME 95 fL (79-100); MONO # 0.6 x10^3/uL (0.0-1.1); MONO % 14 % (0-9); NEUT # 1.7 x10^3/uL (1.8-7.7); NEUT % 36 % (31-73); PLATELET COUNT 192 x10^3/uL (140-400); RED BLOOD COUNT 3.56 x10^6/uL (4.30-5.70); RED CELL DISTRIBUTION WIDTH 14.6 % (11.5-14.5); WHITE BLOOD COUNT 4.7 x10^3/uL (4.0-11.0)
[2021-02-25] MEDS ORDERED: MIDAZOLAM HCL/PF 2 MG/2 ML VIAL. ONE (13:37)
[2021-02-25] MEDS ORDERED: fentaNYL PF VIAL 100 MCG/2 ML VIAL ONE (13:37)
[2021-02-25] MEDS ORDERED: HEPARIN for IV BOLUS 10,000 UNIT/10 ML VIAL. ONE (13:37)
[2021-02-25] MEDS ORDERED: CONTRAST GIVEN. MC PRN ×2 (14:30)
[2021-02-25] MEDS ORDERED: fentaNYL PF VIAL 100 MCG/2 ML VIAL IV ONE (14:30)
[2021-02-25] MEDS ORDERED: MIDAZOLAM HCL/PF 2 MG/2 ML VIAL. IV ONE (14:30)
[2021-02-25] MEDS ORDERED: LIDOCAINE WITH 8.4% SOD BICARB 3 ML DISP.SYRIN. IJ ONE (14:30)
[2021-02-25] MEDS ORDERED: IODIXANOL 320 MG/ML 100 ML VIAL. IART ONE (14:30)
[2021-02-25 14:47] VITALS: BP 102/69
[2021-02-25 14:55] VITALS: BP 112/74
[2021-02-25 15:25] VITALS: BP 104/62
[2021-02-25 15:45] VITALS: BP 110/59
--- NOTE | 2021-02-25 15:50 | NUR ---
Discharge Note: CHINA JOHN Discharge instructions and discharge home medications reviewed with Patient and a copy given. All questions have been answered and understanding verbalized. The following instructions and handouts were given: AV graft, sedation Dressing to L upper arm dry and intact. Patient discharged to Home or Self Care with Family Member via Wheelchair CINDY FARLEY Addendum: 02/25/21 at 1612 by CLAUDIO ALBERTO RN Amended: Links added.
--- NOTE | 2021-02-26 16:09 | RAD ---
02/26/2021 Left upper extremity AV fistula gram Balloon angioplasty of the proximal outflow vein stenosis INDICATION: Difficult access. Bleeding. High venous pressures. COMPARISON STUDY: None Consent: The procedure was explained in its entirety to the patient or the patients designated repres entative by a member of the treatment team, including a discussion of the risks, benefits and commonl y accepted alternatives to the procedure, as well as the expected consequences of no therapy whatsoev er. Discussion of the risks included, but was not limited to, those that are most frequent and thos e that are rare but possibly severe or life-threatening, as well as the possibility of unforeseen com plications. The patient was prepped and draped using maximum sterile technique, including the use of: Current av deline approved cutaneous antisepsis, a large sterile sheet to establish a sterile field. Additionall y the charging car operator wore a hat, mask, sterile gloves, a sterile gown during the procedure as well as pract iced acceptable hand hygiene prior to placing the line. Lidocaine was used for local anesthesia. Ultrasound evaluation demonstrates a left upper extremity AV fistula to be patent. Reference ultrasou nd imaging was saved in the medical record. The outflow vein was accessed just beyond the anastomosis. Fistulogram is demonstrated patent stent in the outflow vein. No central stenosis is identified. Mild stenosis is noted in the proximal most o utflow vein. Access was achieved, and a contralateral direction with ultrasound guidance in an identi bala fashion to the prior access. Balloon angioplasty was performed up to 8 mm. The somewhat improved morphology, although focal irregularity persists possibly representing a branching vein. This does no t appear to be flow-limiting. She is removed over projecting sutures. Additional pressure was held. S terile dressings were applied. Total fluoroscopy time: 3.3 minutes Dose area product 44 Ashraf centimeter squared Sedation: The procedure was performed under conscious sedation including continuous cardiopulmonary m onitoring via a dedicated sedation nurse. Kdal-ft-cdop sedation time: 52 minutes IMPRESSION: 1. Mild narrowing and focal irregularity in the proximal outflow vein treated with balloon angioplast y yielding some improvement, without complete resolution. 2. Previously placed stent is patent. 3. The patient's arm was marked to assist subsequent access to the fistula Electronically signed by: Tj Berrios MD (02/26/2021 4:07 PM) [id number]
== END 2021-02-25 15:50 | disposition home or self-care (01) ==
LOC: INTRAD 10:38
PROVIDERS: ATTEND Internal Medicine Nephrology
DX: I87.1 Compression of vein (principal); I12.0 Hypertensive chronic kidney disease with stage 5 chronic kidney disease or end stage renal disease; N18.6 End stage renal disease; E11.22 Type 2 diabetes mellitus with diabetic chronic kidney disease; E66.9 Obesity, unspecified; J45.909 Unspecified asthma, uncomplicated; M19.90 Unspecified osteoarthritis, unspecified site; Z79.82 Long term (current) use of aspirin; Z79.84 Long term (current) use of oral hypoglycemic drugs; Z79.899 Other long term (current) drug therapy; Z98.890 Other specified postprocedural states; Z87.891 Personal history of nicotine dependence
CPT/HCPCS: 36415; 36902; 76937; 85025; 99152; 99153; C1725; C1769; C1892; C1894; J1644; J2250; J3010; J3490; Q9967

== ENCOUNTER 2021-05-19 10:47 | Day surgery (SDC) | payer MEDICARE ==
[~2021-05-19] VITALS: Ht 172.7 cm; Wt 104.5 kg
[~2021-05-19 10:47] MED LIST changes: +FURO20TA3 PO; +HYDROmorphone 2 MG/ML VIAL IVP PRN; +IV RINGERS,LACTATED 1000ML 1,000 ML IV SCH; +METO5TAB4 PO; +MIDO5TAB4 PO; +MORPHINE SULFATE 2 MG/ML INJ. IVP PRN; +PROCHLORPERAZINE 10 MG/2 ML VIAL. IVP PRN; +SEVE800T8 PO; +TORS20TA2 PO; +ceFAZolin SODIUM 3 GM in IV DEXTROSE 5% 100ML 100 ML IV PRN; +fentaNYL PF VIAL 100 MCG/2 ML VIAL IVP PRN
[2021-05-19] MEDS ORDERED: PROPOFOL 10 MG/ML (20ML) VIAL. IV ONE (11:01)
[2021-05-19] MEDS ORDERED: LIDOCAINE 2% PF 5 ML VIAL. ONE (11:01)
[2021-05-19] MEDS ORDERED: DEXAMETHASONE SOD PHOS 4 MG/ML VIAL ONE (11:01)
[2021-05-19] MEDS ORDERED: ONDANSETRON PF 4 MG/2 ML VIAL. ONE (11:01)
[2021-05-19] MEDS ORDERED: fentaNYL PF VIAL 100 MCG/2 ML VIAL ONE (11:03)
[2021-05-19 11:21] VITALS: BP 104/51
[2021-05-19 11:51] LABS: CALCIUM 6.7 mg/dL (8.5-10.1); CREATININE 12.2 mg/dL (0.7-1.3); GFR 4.9; POTASSIUM 5.2 mmol/L (3.5-5.1)
[2021-05-19] MEDS ORDERED: IV NORMAL SALINE 1000ML BAG 1,000 ML IV SCH (12:00)
[2021-05-19] MEDS ORDERED: LIDOCAINE 1% Multi-Dose 20 ML VIAL. ONE (12:21)
[2021-05-19] MEDS ORDERED: BACITRACIN TOPICAL OINT PACKET. TP ONE (12:22)
[2021-05-19] MEDS ORDERED: LIDOCAINE 1% PF 30 ML VIAL. ONE (12:34)
[2021-05-19] MEDS ORDERED: BUPIVACAINE MPF 0.25% 30 ML VIAL. ONE (12:34)
[2021-05-19] MEDS ORDERED: EPINEPHrine 1 MG/ML VIAL ONE (12:34)
[2021-05-19] MEDS ORDERED: SEVOFLURANE 61 TO 120 MINUTES. IH ONE (12:43)
[2021-05-19] MEDS ORDERED: PHENYLEPHRINE in 0.9% NACL PF 1 MG/10 ML SYRINGE. IV ONE (12:47)
--- NOTE | 2021-05-19 14:22 | PDOC4 ---
OPERATIVE NOTE Date: Date: May 19, 2021 Pre-Op Diagnosis: Stenosing tenosynovitis of the right thumb Stenosing tenosynovitis of the right index finger Stenosing tenosynovitis of the left index finger Post-Op Diagnosis: Same Procedure Performed: Release of A1 spencer of right thumb, right index finger, and left index finger CPT 16687 Surgeon: Jessa Ross MD Anesthesia Type: General LMA plus local anesthesia with a 50-50 mix of 1% lidocaine with epinephrine and 0.25% Marcaine with epinephrine Blood Loss: 10 mL Specimans Obtained: None Findings: See operative note Complications: None Operative Note: Informed consent was obtained in the perioperative holding area. The risks of bleeding, infection, damage to the surrounding nerves and tendons, stiffness, were discussed with the patient. He understood the risks and desired to proceed. The patient was taken to the operating room and placed on the OR table in the supine position. SCDs were placed and functioning. 3 g of Ancef were given prior to the incision. General anesthesia was induced. A timeout was completed verifying the correct patient and correct procedure. The bilateral upper extremities were prepped with ChloraPrep and draped in a sterile fashion. Tourniquets were applied but were never inflated throughout the case. For each digit the procedure proceeded as follows: A subcentimeter incision was made just distal to the palmar digital crease of the digit directly centered over the palmar aspect of the digit. Blunt dissection was carried down through the soft tissues to the level of the tendon sheath. The neurovascular bundles were identified and preserved. With proximal and distal retraction a scalpel was used to incise the A1 spencer sheath longitudinally. The incision was started proximally and the digit was progressively extended to complete the release. A right angle clamp was used to elevate the superficial tendons out of the wound. There was significant tenosynovitis around the tendons and this was sharply excised with care when possible. Digit extension and flexion were performed to expose the proximal and distal extents of the tenosynovium for excision. Once excision was completed the tendon was placed back in its anatomic position. Successful completion of the release was confirmed with full extension of the digit. The wound was irrigated with saline. Hemostasis was achieved with bipolar cautery. The skin was closed with interrupted horizontal mattress sutures. Antibiotic ointment was applied to the incision followed by Xeroform. This was covered with gauze and the hands were wrapped with Kerlix and Jonah bandage. The patient tolerated the procedure well and was taken to the PACU in stable condition. JESSA ROSS MD May 19, 2021 14:22
[2021-05-19 14:33] VITALS: BP 120/58
== END 2021-05-19 15:08 | disposition home or self-care (01) ==
LOC: SURG 10:47
PROVIDERS: ATTEND Plastic Surgery
DX: M65.841 Other synovitis and tenosynovitis, right hand (principal); M65.319 Trigger thumb, unspecified thumb; M65.842 Other synovitis and tenosynovitis, left hand; I10 Essential (primary) hypertension; E78.00 Pure hypercholesterolemia, unspecified; G47.30 Sleep apnea, unspecified; E66.9 Obesity, unspecified; M19.90 Unspecified osteoarthritis, unspecified site; E11.9 Type 2 diabetes mellitus without complications; Z79.82 Long term (current) use of aspirin; Z79.899 Other long term (current) drug therapy; Z87.891 Personal history of nicotine dependence; Z98.890 Other specified postprocedural states
CPT/HCPCS: 26055; 36415; 80048; A4930; A6402; J0171; J1100; J2370; J2405; J2704; J3010; J3490; A4657; A6452

== ENCOUNTER → 2021-11-10 | Outpatient (CLI) | payer MEDICARE ==
[2021-11-10] VITALS (11 sets, daily range): BP systolic 79–131; BP diastolic 43–67
[~2021-11-10] VITALS: Ht 177.8 cm; Wt 117.5 kg
[~2021-11-10] MED LIST changes: +CALC667T4 PO; +CONTRAST GIVEN. MC PRN; +DEXTROSE 50% 25 GM / 50ML DISP.SYRIN. IV ONE; +HEPARIN for ARTERIAL LINE 1,500 ML ONE; -HYDROmorphone 2 MG/ML VIAL IVP PRN; +INSULIN REGULAR 100 UNIT/ML 3ML VIAL. IV ONE; +IODIXANOL 320 MG/ML 100 ML VIAL. ONE; +IV DEXTROSE 5% 500 ML IV ONE; +IV NORMAL SALINE 500ML BAG 500 ML IV ONE; -IV RINGERS,LACTATED 1000ML 1,000 ML IV SCH; +LIDOCAINE 1% Multi-Dose 20 ML VIAL. INJ ONE; +LIDOCAINE 1% Multi-Dose 20 ML VIAL. ONE; +LIDOCAINE 1% PF 2 ML VIAL. ONE; +MIDAZOLAM HCL/PF 2 MG/2 ML VIAL. IV ONE; +MIDAZOLAM HCL/PF 2 MG/2 ML VIAL. ONE; -MORPHINE SULFATE 2 MG/ML INJ. IVP PRN; -PROCHLORPERAZINE 10 MG/2 ML VIAL. IVP PRN; -ceFAZolin SODIUM 3 GM in IV DEXTROSE 5% 100ML 100 ML IV PRN; +fentaNYL PF VIAL 100 MCG/2 ML VIAL IV ONE; -fentaNYL PF VIAL 100 MCG/2 ML VIAL IVP PRN
[2021-11-10 10:53] LABS: HEMATOCRIT 31.5 % (39.0-53.0); HEMOGLOBIN 10.5 g/dL (13.0-17.5); RED BLOOD COUNT 3.3 x10^6/uL (4.30-5.70); RED CELL DISTRIBUTION WIDTH 13.5 % (11.5-14.5); WHITE BLOOD COUNT 6.2 x10^3/uL (4.0-11.0)
[2021-11-10 11:01] LABS: CALCIUM 6.7 mg/dL (8.5-10.1); CREATININE 11.7 mg/dL (0.7-1.3); GFR 5.1
[2021-11-10 11:04] LABS: POTASSIUM 6.5 mmol/L (3.5-5.1)
[2021-11-10 11:08] LABS: PROTHROMBIN TIME PATIENT 13.7 SEC (11.7-14.0)
[2021-11-10 12:18] LABS: CALCIUM 6.1 mg/dL (8.5-10.1); CREATININE 11.6 mg/dL (0.7-1.3); GFR 5.2
--- NOTE | 2021-11-10 12:23 | CARD ---
MR#: [id number] Date of Study: 11/10/2021 Ordering Physician: GOPI BOYLE, Referring Physician: GOPI BOYLE, Tech: RT Piedad(R)() APPROVED REPORT Technologist: Jennifer Quintero RT(R)() Nurse: Aurelia Rae RN Procedure(s) performed: MODERATE SEDATION TIME: 26 MINUTES FLUORO TIME: 1.8 MIN DOSE: 50.4 GYCM2 CONTRAST: 59CC VISI [place], Coronary angiography HISTORY The patient is a 76 year-old male with a history of : renal failure with dialysis, hypertension, dysl ipidemia. INDICATION The indication(s) include : pre-op clearance. [facility] Clinical Frailty Scale [facility] Clinical Frailty Scale: Mildly Frail Heart Failure Heart Failure: No CASE TECHNIQUE IV conscious sedation was used throughout procedure with appropriate monitoring and was performed in the presence of a registered nurse who was an independent trained observer other than the physician p erforming the procedure. During this case, Fluoroscopy and low osmolar contrast were used for imaging . Specimen(s) Removed: N/A Estimated Blood loss: 15 cc's. PROCEDURE NARRATIVE After appropriate informed consent the right groin was prepped and draped in usual sterile fashion. Under 1% lidocaine local anesthesia a 4 Sami sheath was placed in the right common femoral artery. Diagnostic angiography was then performed with a 4 Sami JL4, JR4 catheters. Left ventricular end- diastolic pressure was obtained with a JR4 catheter and a pullback was performed. At case completion the groin sheath was removed and hemostasis was achieved via manual compression. No acute complicat ions. Findings: Aorta 110/80 LVEDP 18 mmHg 20 mm LV to aortic pullback gradient Coronary angiography: Left main is a large-caliber vessel with normal angiographic appearance LAD is a moderate to large caliber vessel with a patent proximal stent with a mid 40 to 50% stenosis. D1 is a small caliber vessel with normal angiographic appearance Left circumflex is a small caliber nondominant vessel with mild luminal irregularities OM1 is a small caliber nondominant vessel with mild luminal irregularities OM 2 is a small to moderate caliber vessel with a proximal 30% stenosis RCA is a moderate caliber vessel with mild diffuse disease of up to 40%. Conclusion 1. Acute on chronic diastolic heart failure 2. One-vessel coronary artery disease with patent LAD stent Recommendations Aggressive Medical Therapy Signed by : Gopi Boyle, Electronically Approved : 11/10/2021 12:22:56
[2021-11-10 12:25] LABS: ALBUMIN 3.2 g/dL (3.4-5.0); ALBUMIN/GLOBULIN RATIO 0.9 (1.0-1.7); TOTAL BILIRUBIN 0.3 mg/dL (0.2-1.0); TOTAL PROTEIN 6.8 g/dL (6.4-8.2)
--- NOTE | 2021-11-10 14:04 | NUR ---
spoke with Dr. Boyle regarding low blood pressures. NS 500cc bolus given per MD order. Will continue to monitor. Groin site soft. So signs of bleeding noted
--- NOTE | 2021-11-10 15:01 | NUR ---
discharge instructions reviewed with patient. Pt ambulated and tolerated PO. PIV left intact for echocardiogram. Pt denies dizziness.
--- NOTE | 2021-11-10 16:03 | CARD ---
MR#: [id number] Date of Study: 11/10/2021 Ordering Physician: GOPI BARCENAS, Referring Physician: GOPI BARCENAS, Tech: Cheyenne Camacho [facility] APPROVED REPORT EXAM: Two-dimensional and M-mode echocardiogram with Doppler and color Doppler. Other Information Quality : Technically LimitedHR: 91bpm Rhythm : NSR INDICATION Cardiac Disease: CAD RISK FACTORS Hypertension Obesity Hyperlipidemia Diabetes 2D DIMENSIONS RVDd3.5 (2.9-3.5cm)Left Atrium(2D)3.6 (1.6-4.0cm) IVSd1.4 (0.7-1.1cm)Aortic Root(2D)2.6 (2.0-3.7cm) LVDd4.5 (3.9-5.9cm)LVOT Diameter2.6 (1.8-2.4cm) PWd1.4 (0.7-1.1cm)LVDs3.7 (2.5-4.0cm) FS (%) 18.2 %SV34.4 ml LVEF(%)37.9 (>50%) Aortic Valve AoV Peak Baron.258.6cm/sAoV VTI64.5cm AO Peak GR.26.8mmHgLVOT Peak Baron.114.5cm/s AO Mean GR.13mmHgAVA (VMAX)2.31cm2 Mitral Valve MV E Ircjyobq668.9cm/sMV DECEL [id number] MV A Vubxhvlb424.6cm/sE/A Ratio0.9 LEFT VENTRICLE The left ventricle is normal size. There is mild concentric left ventricular hypertrophy. The left ve ntricular systolic function is normal and the ejection fraction is within normal range. Estimated eje ction fraction 60%. There is normal LV segmental wall motion. Tissue Doppler imaging reveals moderate left ventricular diastolic dysfunction. RIGHT VENTRICLE The right ventricle is normal size. There is normal right ventricular wall thickness. The right ventr icular systolic function is normal. ATRIA The left atrium size is normal. The right atrium size is normal. The interatrial septum is intact wit h no evidence for an atrial septal defect or patent foramen ovale as noted on 2-D or Doppler imaging. AORTIC VALVE The aortic valve is calcified with restricted leaflet motion. No significant aortic stenosis based on doppler criteria. Doppler and Color Flow revealed no significant aortic regurgitation. There is no s ignificant aortic valvular stenosis. MITRAL VALVE The mitral valve is normal in structure and function. There is no evidence of mitral valve prolapse. There is no mitral valve stenosis. Doppler and Color Flow revealed no mitral valve regurgitation note d. TRICUSPID VALVE The tricuspid valve is normal in structure and function. Doppler and Color Flow revealed no tricuspid valve regurgitation noted. There is no tricuspid valve stenosis. PULMONIC VALVE Doppler and Color Flow revealed no pulmonic valvular regurgitation. There is no pulmonic valvular guicho nosis. GREAT VESSELS The aortic root is normal in size. The ascending aorta is normal in size. The IVC is normal in size a nd collapses >50% with inspiration. PERICARDIAL EFFUSION There is no evidence of significant pericardial effusion. Critical Notification Critical Value: No <Conclusion> The left ventricular systolic function is normal and the ejection fraction is within normal range. E stimated ejection fraction 60%. There is normal LV segmental wall motion. The aortic valve is calcified with restricted leaflet motion. No significant aortic stenosis based on doppler criteria. Signed by : Gopi Barcenas, Electronically Approved : 11/10/2021 16:02:56
== END | disposition home or self-care (01) ==
LOC: CCL 08:51
PROVIDERS: ATTEND Internal Medicine Cardiovascular Disease
DX: I25.10 Atherosclerotic heart disease of native coronary artery without angina pectoris (principal); Q25.3 Supravalvular aortic stenosis; E78.00 Pure hypercholesterolemia, unspecified; I11.0 Hypertensive heart disease with heart failure; I50.33 Acute on chronic diastolic (congestive) heart failure; J45.909 Unspecified asthma, uncomplicated; G47.30 Sleep apnea, unspecified; E66.9 Obesity, unspecified; M19.90 Unspecified osteoarthritis, unspecified site; E11.9 Type 2 diabetes mellitus without complications; Z79.82 Long term (current) use of aspirin; Z79.899 Other long term (current) drug therapy; Z98.890 Other specified postprocedural states
CPT/HCPCS: 36415; 80048; 80053; 85027; 85610; 93306; 93458; 99152; 99153; C1769; C1894; J1644; J1815; J2250; J3010; J3490; J7040; C8929